=== PATIENT | male | born 1975 | race Caucasian/White ===

== ENCOUNTER 2018-12-12 21:50 | Emergency (ER) | payer OTHER ==
[2018-12-12] MEDS ORDERED: NA CHLORIDE 0.9% 1,000 ML ONE ×2 (22:08→23:34)
[2018-12-12 23:06] LABS: Absolute Lymphocytes (CBC) 2.6 K/uL (0.7-4.9); Basophils % 0.2 % (0-1.3); Hematocrit 41.1 % (39.6-49.0); Lymphocytes % 15.3 % (15.3-44.8); MPV 7.7 fL (7.6-11.3); RBC Red Blood Cell Count 4.47 M/uL (4.33-5.43)
[2018-12-12 23:23] LABS: Potassium 3.6 mmol/L (3.5-5.1)
[2018-12-12] MEDS ORDERED: FENTANYL CITR 100 MCG/2 ML ONE (23:27)
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
[2018-12-13 00:33] VITALS: TEMP 98.9
[2018-12-13 00:36] VITALS: BP 125/93; O2SAT 100
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
--- NOTE | 2018-12-13 10:18 | EKG ---
Test Date: 2018-12-12 Test Time: 22:03:16 Finish Saw Operator: SHAINA MEASUREMENT RESULTS: Intervals: Rate: 90 GA: 152 QRSD: 100 QT: 358 QTc: 437 [place]: P: 61 GA: 152 QRS: 90 T: 31 INTERPRETIVE STATEMENTS: Normal sinus rhythm Rightward axis Borderline ECG No previous ECG available for comparison Electronically Signed On 12-13-18 10:16:08 CDT by Raul Santillan
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
== END 2018-12-13 00:17 | disposition short-term general hospital (02) ==
LOC: ER 21:50
DX: K66.1 Hemoperitoneum (principal); S81.811A Laceration without foreign body, right lower leg, initial encounter; V86.55XA Driver of 3- or 4- wheeled all-terrain vehicle (ATV) injured in nontraffic accident, initial encounter; I10 Essential (primary) hypertension
CPT/HCPCS: 93005; 85025; 80048; 36415; 80320; 70450; 72125; 71260; 74177; 73590; 99285; Q9967; J3010; J7030 ×2; 96361; 96374